=== PATIENT | female | born 1980 | race Caucasian/White ===

== ENCOUNTER → 2018-10-05 10:18 | Outpatient (CLI) | payer OTHER ==
[~2018-10-05 10:18] MED LIST: CIPRO500 MG PO; FLAGYL500MG PO; INTESTINEX1 CA1 PO; METOPROLOL SUCC25 MG; VIT B; ZANTAC150 MG PO
== END | disposition home or self-care (01) ==
LOC: LAB 10:18
DX: E66.01 Morbid (severe) obesity due to excess calories (principal)

== ENCOUNTER 2018-10-12 07:00 | Day surgery (SDC) | payer OTHER ==
[~2018-10-12] VITALS: Ht 160 cm; Wt 72.6 kg
[2018-10-12] MEDS ORDERED: VITAMIN B COMP1 EACH PO (08:46)
== END 2018-10-13 09:00 | disposition home or self-care (01) ==
LOC: CIR.AMB 07:00 → EDSTATUS 08:15 → O/R 08:15 → SURG 20:29 → CIR.AMB 10-13 09:00 → SURG 10-13 14:17 → EDSTATUS 10-29 08:15 → CIR.AMB 10-29 08:15 → O/R 10-29 08:15
DX: N62 Hypertrophy of breast (principal); E65 Localized adiposity; M62.08 Separation of muscle (nontraumatic), other site; E66.01 Morbid (severe) obesity due to excess calories